=== PATIENT | female | born 1975 | race Caucasian/White ===

== ENCOUNTER 2017-07-03 17:31 | Inpatient (IN) | payer BC ==
[2017-07-03] MEDS ORDERED: Nalbuphine 10 MG/1 ML Vial IVPUSH PRN (21:11)
[2017-07-03] MEDS ORDERED: Sodium Chloride 0.9% 2.5 ML Syringe FLUSH PRN (21:11)
[2017-07-03] MEDS ORDERED: Butorphanol 1 MG/ML SDV IVPUSH PRN (21:11)
[2017-07-03] MEDS ORDERED: Water For Irrigation,Sterile 1,000 ML Container IRR PRN (21:11)
[2017-07-03] MEDS ORDERED: Sodium Chloride 0.9% 10 ML Syringe FLUSH PRN (21:11)
[2017-07-03] MEDS ORDERED: Methylergonovine 0.2 MG/1 ML Amp IM PRN (21:11)
[2017-07-03] MEDS ORDERED: Lidocaine 1% 50 ML MDV INJECT PRN (21:11)
[2017-07-03] MEDS ORDERED: Misoprostol 200 MCG Tab PO PRN (21:11)
[2017-07-03] MEDS ORDERED: Terbutaline 1 MG/ML SDV SUBCUT PRN (21:11)
[2017-07-03] MEDS ORDERED: Carboprost Tromethamine 250 MCG/1 ML Amp IM PRN (21:11)
[2017-07-03] MEDS ORDERED: Oxytocin/0.9 % Sodium Chloride 30 UNIT/500 ML BAG IV SCH ×2 (21:15)
[2017-07-03] MEDS: Lactated Ringers 1,000 ML IV SCH (23:37)
[2017-07-04] MEDS ORDERED: fentaNYL 100 MCG/2 ML SDV ONE (00:04)
[2017-07-04] MEDS ORDERED: Ropivacaine 0.2% 2 MG/ML 20 ML SDV ONE (00:05)
[2017-07-04] MEDS ORDERED: Ropivacaine 100 ML ONE (00:05)
[2017-07-04] MEDS: Lactated Ringers 1,000 ML IV SCH ×2 (00:28→07:19)
--- NOTE | 2017-07-04 00:45 | PCM.PREANE ---
Preanesthetic Assessment - Procedure Proposed Procedure: labor epidural - Anesthesia/Transfusion/Family Hx Anesthesia History: Prior Anesthesia Without Reaction Family History of Anesthesia Reaction: No Transfusion History: No Prior Transfusion(s) - Review of Systems General: No Symptoms Pulmonary: No Symptoms Cardiovascular: No Symptoms Gastrointestinal: No Symptoms Neurological: Other (lower back pain) Other: Reports: None - Physical Assessment NPO Status Date: 07/04/17 NPO Status Time: 00:44 (clear liquids) Height: 1.7 m Weight: 94.801 kg ASA Class: 2 Mental Status: Alert & Oriented x3 Airway Class: Mallampati = 1 Dentition: Reports: Normal Dentition Thyro-Mental Finger Breadths: 3 Mouth Opening Finger Breadths: 3 ROM/Head Extension: Full Lungs: Clear to Auscultation, Normal Respiratory Effort Cardiovascular: Regular Rate, Regular Rhythm - Lab Values: Laboratory Last Values WBC 10.05 K/uL (4.0-11.0) 07/03/17 21:30 RBC 3.92 M/uL (4.30-5.90) L 07/03/17 21:30 Hgb 12.0 g/dL (12.0-16.0) 07/03/17 21:30 Hct 34.5 % (36.0-46.0) L 07/03/17 21:30 MCV 88.0 fL (80.0-98.0) 07/03/17 21:30 MCH 30.6 pg (27.0-32.0) 07/03/17 21:30 MCHC 34.8 g/dL (31.0-37.0) 07/03/17 21:30 RDW Std Deviation 40.3 fl (28.0-62.0) 07/03/17 21:30 RDW Coeff of Hector 13 % (11.0-15.0) 07/03/17 21:30 Plt Count 194 K/uL (150-400) 07/03/17 21:30 MPV 9.20 fL (7.40-12.00) 07/03/17 21:30 Nucleated RBC % 0.0 /100WBC 07/03/17 21:30 Nucleated RBCs # 0 K/uL 07/03/17 21:30 Membrane Rupture POSITIVE 07/03/17 21:40 - Allergies Allergies/Adverse Reactions: Allergies Allergy/AdvReac Type Severity Reaction Status Date / Time No Known Allergies Allergy Verified 11/20/15 12:06 - Blood Blood Available: Yes Product(s) Available: PRBC - Acknowledgements Anesthesia Type Planned: Epidural Pt an Appropriate Candidate for the Planned Anesthesia: Yes Alternatives and Risks of Anesthesia Discussed w Pt/Guardian: Yes Pt/Guardian Understands and Agrees with Anesthesia Plan: Yes PreAnesthesia Questionnaire Gastrointestinal History: Reports: Hemorrhoids Genitourinary History: Reports: Other (See Below) 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: Musculoskeletal History: Reports: Fracture, Other (See Below) Other Musculoskeletal History: nose and right arm fracture Neurological History: Reports: Migraines Psychiatric History: Reports: Depression - Past Surgical History HEENT Surgical History: Reports: Oral Surgery, Tonsillectomy - SUBSTANCE USE Smoking Status *Q: Unknown Ever Smoked Recreational Drug Use History: No - HOME MEDS Home Medications: Home Meds Loratadine/Pseudoephedrine [Claritin-D 24 Hour Tablet] 1 tab PO DAILY 06/17/14 [ History] PNV95/Ferrous Fumarate/FA [ Tablet] 1 tab PO DAILY 06/17/14 [History] - CURRENT (IN HOUSE) MEDS Current Meds: Current Medications Butorphanol Tartrate (Stadol) 1 mg IVPUSH ASDIRECTED PRN PRN Reason: Pain Carboprost Tromethamine (Hemabate Ds) 250 mcg IM ASDIRECTED PRN PRN Reason: Post Hemorrhage Oxytocin/Sodium Chloride (Oxytocin 30 Unit/500 Ml-Ns) 30 unit in 500 mls @ 2 mls/hr IV TITRATE ONEIL; 2 MUNITS/MIN PRN Reason: Protocol Lactated Ringer's (Ringers, Lactated) 1,000 mls @ 150 mls/hr IV ASDIRECTED ONEIL Last Admin: 07/04/17 00:28 Dose: 150 mls/hr Oxytocin/Sodium Chloride (Oxytocin 30 Unit/500 Ml-Ns) 30 unit in 500 mls @ 999 mls/hr IV TITRATE ONEIL Lidocaine HCl (Xylocaine 1%) 50 ml INJECT .ONCE PRN PRN Reason: Laceration repair Methylergonovine Maleate (Methergine) 0.2 mg IM ASDIRECTED PRN PRN Reason: Post Hemorrhage Misoprostol (Cytotec) 200 mcg PO .ONCE PRN PRN Reason: Post Hemorrhage Nalbuphine HCl (Nubain) 10 mg IVPUSH ASDIRECTED PRN PRN Reason: Pain (severe 7-10) Sodium Chloride (Saline Flush) 10 ml FLUSH ASDIRECTED PRN PRN Reason: Keep Vein Open Sodium Chloride (Saline Flush) 2.5 ml FLUSH ASDIRECTED PRN PRN Reason: Keep Vein Open Sterile Water (Sterile Water For Irrigation) 1,000 ml IRR ASDIRECTED PRN PRN Reason: delivery Terbutaline Sulfate (Brethine) 0.25 mg SUBCUT ASDIRECTED PRN PRN Reason: Tacysystole Discontinued Medications Fentanyl (Sublimaze) Confirm Administered Dose 300 mcg .ROUTE .STK-MED ONE Stop: 07/04/17 00:05 Ropivacaine (Naropin 0.2%) Confirm Administered Dose 100 mls @ as directed .ROUTE .STK-MED ONE Stop: 07/04/17 00:06 Ropivacaine (Naropin 0.2%) Confirm Administered Dose 20 ml .ROUTE .STK-MED ONE Stop: 07/04/17 00:06
--- NOTE | 2017-07-04 00:53 | PCM.PRNOTE ---
- Free Text/Narrative Note: called to see pt for labor pain and epidural placement. pt sitting up, discussed procedure including risks of nerve pain, nerve damage, bleeding, infection and unsuccessful epidural. pt wishes to proceed. sitting up, sterile betadine prep x 3. sterile drape applied. 1% lidocaine SQ at L4. #17 g touhy SONAL with saline advanced approximately 7 cm, catheter easily placed to 12 cm at skin. No heme, no parasthesia noted. test dose 1.5% lidocaine with epi 1:200, 000. negative reaction. bolus dose of 7 ml 0.2% ropivicaine with fentanyl 100 mcg given in divided doses over 10 minutes. Pain now 1/10. PCEA programmed and running with ropivicaine 0.2% with fentanyl 2 mcg/ml at 8 ml/hr. PCEA bolus at 8 ml every 10 minutes with hourly lockout of 36 ml. educated on use of PCEA handle. No complications noted
[2017-07-04] MEDS ORDERED: Bisacodyl 10 MG Supp RECTAL PRN (09:34)
[2017-07-04] MEDS ORDERED: Docusate Sodium 100 MG Cap PO PRN (09:34)
[2017-07-04] MEDS ORDERED: Ibuprofen 400 MG Tab PO PRN (09:34)
[2017-07-04] MEDS ORDERED: Lanolin 100% Cream 7 GM Tube TOP PRN (09:34)
[2017-07-04] MEDS ORDERED: oxyCODONE 5 MG Tab PO PRN (09:34)
[2017-07-04] MEDS ORDERED: Witch Hazel Medicated Pads 40/Jar TOP PRN (09:34)
[2017-07-04] MEDS ORDERED: Benzocaine/Menthol 20%-0.5% Spray 78 GM Cannister TOP PRN (09:34)
[2017-07-04] MEDS ORDERED: Acetaminophen 500 MG Tab PO PRN (09:34)
--- NOTE | 2017-07-04 09:48 | PCM48HPAN ---
Post Anesthesia Note - EVALUATION WITHIN 48HRS OF ANESTHETIC Vital Signs in Normal Range: Yes Patient Participated in Evaluation: Yes Respiratory Function Stable: Yes Airway Patent: Yes Cardiovascular Function Stable: Yes Hydration Status Stable: Yes Pain Control Satisfactory: Yes Nausea and Vomiting Control Satisfactory: Yes Mental Status Recovered: Yes - COMMENTS/OBSERVATIONS Free Text/Narrative:: at this time Left leg numbness has not fully resolved
[2017-07-04] MEDS: Ibuprofen 800 MG Tab PO PRN ×3 (10:55→22:59)
--- NOTE | 2017-07-04 18:17 | OR ---
SURGEON: Liliana Ngo M.D. DATE OF PROCEDURE: 07/03/2017 PREOPERATIVE DIAGNOSIS: 39 week intrauterine , active spontaneous labor. POSTOPERATIVE DIAGNOSIS: 39 week intrauterine , active spontaneous labor. PROCEDURE: Pitocin augmentation of labor, term spontaneous vaginal delivery. ANESTHESIA: Epidural. ESTIMATED BLOOD LOSS: Less than 300 mL. FINDINGS: Live born male, score 9 and 10, weighing 4130 g. Placenta delivered spontaneously. Schultze intact with 3 vessels. Second-degree perineal laceration repaired. COMPLICATIONS: None known. DISPOSITION: Stable. Mother and baby are stable in LDRP in good condition. BRIEF HISTORY: This is a 42-year-old female. She is G11, P10. She presented to clinic on 07/02/2017. She was 3-4 cm dilated, 70% effaced. She returned to labor and delivery later on in the evening with spontaneous rupture of membranes. Clear fluid. Category 1 heart tones. She received an epidural for pain control at approximately 5:30 a.m. She had not progressed beyond 7 to 8 cm and therefore Pitocin was initiated and she progressed to complete. DESCRIPTION OF PROCEDURE: With the patient in the dorsal lithotomy position, under adequate epidural analgesia, the patient pushed over a single contraction to a 5+ station, at which time the head was delivered spontaneously and atraumatically over the perineum with support with subsequent delivery of the 's shoulders and body without any difficulty. The infant was bulb suctioned by nose and mouth. The cord was clamped x2 and cut and the infant was handed to the mother in the presence of the nurse attending delivery. The infant was a live-born male, score 9 and 10, weighing 4130 g. Cord blood was collected for cord ABGs as well as routine cord blood sampling. Pitocin was initiated after delivery of the to assist with delivery of the placenta which was delivered spontaneously. Schultze intact with 3 vessels. Upon inspection the pelvis and perineum, there were no periurethral, vaginal sidewall, cervical, or rectal lacerations. There was a second-degree perineal laceration. It was repaired with a running lock suture of 2-0 Caprosyn for the vaginal mucosa, deep running suture same for the skin and a deep running suture of the same for the perineal tissue and a running subcuticular suture for the skin. Final sponge, needle, and instrument counts were reported as correct. There were no known complications. Mother and baby remained in LDRP in good condition. CHEPE CANTOR /[id number]
[2017-07-04] MEDS: Acetaminophen 500 MG Tab PO PRN (20:12)
[2017-07-05] MEDS: Acetaminophen 500 MG Tab PO PRN ×2 (01:09→09:32)
[2017-07-05] MEDS: Ibuprofen 800 MG Tab PO PRN ×2 (05:13→12:25)
[2017-07-05 06:10] VITALS: BP 123/75
--- NOTE | 2017-07-05 08:01 | PCM.PNPP ---
- General Info Date of Service: 07/05/17 Functional Status: Reports: Pain Controlled, Tolerating Diet, Ambulating, Urinating - Review of Systems General: Denies: Fever, Weakness, Fatigue Pulmonary: Denies: Shortness of Breath, Pleuritic Chest Pain, Cough Cardiovascular: Denies: Chest Pain, Palpitations, Dyspnea on Exertion Gastrointestinal: Denies: Abdominal Pain Genitourinary: Denies: Dysuria - General Info Date of Service: 07/05/17 - Patient Data Vital Signs - Most Recent: Last Vital Signs Temp 36.7 C 07/05/17 06:00 Pulse 74 07/05/17 06:00 Resp 18 07/05/17 06:00 BP 123/75 07/05/17 06:00 Pulse Ox 98 07/05/17 06:00 Weight - Most Recent: 94.801 kg I&O - Last 24 Hours: Intake & Output 07/04/17 07/05/17 07/05/17 22:59 06:59 14:59 Intake Total 2 Balance 2 Lab Results - Last 24 Hours: Laboratory Results - last 24 hr 07/03/17 07/04/17 07/05/17 Range/Units 21:30 09:08 05:01 Hgb 10.1 L (12.0-16.0) g/dL Hct 29.3 L (36.0-46.0) % Prewarmed Antibody Srcn POSITIVE Screen NEGATIVE (NEGATIVE) RhIG Candidate? YES Rhogam Indicated YES, BABY RH POS H Med Orders - Current: Current Medications Acetaminophen (Tylenol Extra Strength) 500 mg PO Q4H PRN PRN Reason: Pain Acetaminophen (Tylenol Extra Strength) 1,000 mg PO Q4H PRN PRN Reason: Pain Last Admin: 07/05/17 01:09 Dose: 1,000 mg Benzocaine/Menthol (Dermoplast Pain Relief 20%-0.5% Epps) 78 gm TOP ASDIRECTED PRN PRN Reason: Perineal Comfort Measure Last Admin: 07/04/17 10:55 Dose: 1 applic Bisacodyl (Dulcolax) 10 mg RECTAL .ONCE PRN PRN Reason: Constipation Docusate Sodium (Colace) 100 mg PO BID PRN PRN Reason: Constipation Last Admin: 07/04/17 23:32 Dose: 100 mg Emollient Ointment (Lansinoh Hpa) 0 gm TOP ASDIRECTED PRN PRN Reason: Sore Nipples Last Admin: 07/04/17 10:54 Dose: 1 applic Ibuprofen (Motrin) 400 mg PO Q4H PRN PRN Reason: Pain Ibuprofen (Motrin) 800 mg PO Q6H PRN PRN Reason: Pain Last Admin: 07/05/17 05:13 Dose: 800 mg Oxycodone HCl (Oxycodone) 5 mg PO Q2H PRN PRN Reason: Pain Witch Ramona (Tucks) 1 pad TOP ASDIRECTED PRN PRN Reason: comfort care Last Admin: 07/04/17 10:54 Dose: 1 applic Discontinued Medications Butorphanol Tartrate (Stadol) 1 mg IVPUSH ASDIRECTED PRN PRN Reason: Pain Carboprost Tromethamine (Hemabate Ds) 250 mcg IM ASDIRECTED PRN PRN Reason: Post Hemorrhage Fentanyl (Sublimaze) Confirm Administered Dose 300 mcg .ROUTE .STK-MED ONE Stop: 07/04/17 00:05 Oxytocin/Sodium Chloride (Oxytocin 30 Unit/500 Ml-Ns) 30 unit in 500 mls @ 2 mls/hr IV TITRATE ONEIL; 2 MUNITS/MIN PRN Reason: Protocol Last Titration: 07/04/17 06:45 Dose: 4 munits/min, 4 mls/hr Lactated Ringer's (Ringers, Lactated) 1,000 mls @ 150 mls/hr IV ASDIRECTED ONEIL Last Admin: 07/04/17 07:19 Dose: 150 mls/hr Oxytocin/Sodium Chloride (Oxytocin 30 Unit/500 Ml-Ns) 30 unit in 500 mls @ 999 mls/hr IV TITRATE ONEIL Ropivacaine (Naropin 0.2%) Confirm Administered Dose 100 mls @ as directed .ROUTE .STK-MED ONE Stop: 07/04/17 00:06 Lidocaine HCl (Xylocaine 1%) 50 ml INJECT .ONCE PRN PRN Reason: Laceration repair Methylergonovine Maleate (Methergine) 0.2 mg IM ASDIRECTED PRN PRN Reason: Post Hemorrhage Misoprostol (Cytotec) 200 mcg PO .ONCE PRN PRN Reason: Post Hemorrhage Nalbuphine HCl (Nubain) 10 mg IVPUSH ASDIRECTED PRN PRN Reason: Pain (severe 7-10) Ropivacaine (Naropin 0.2%) Confirm Administered Dose 20 ml .ROUTE .[employer] ONE Stop: 07/04/17 00:06 Sodium Chloride (Saline Flush) 10 ml FLUSH ASDIRECTED PRN PRN Reason: Keep Vein Open Sodium Chloride (Saline Flush) 2.5 ml FLUSH ASDIRECTED PRN PRN Reason: Keep Vein Open Sterile Water (Sterile Water For Irrigation) 1,000 ml IRR ASDIRECTED PRN PRN Reason: delivery Last Admin: 07/04/17 10:57 Dose: 1,000 ml Terbutaline Sulfate (Brethine) 0.25 mg SUBCUT ASDIRECTED PRN PRN Reason: Tacysystole - Infant Interaction Infant Disposition, : to Nursery Infant Feeding: Breastfed Infant; Nursed Well Support Person: - Recovery Exam Fundal Tone: Firm Fundal Level: At Umbilicus Fundal Placement: Midline Lochia Amount: Scant Lochia Color: Rubra/Red Perineum Description: Other (see below) Other Perinuem Description: 2nd degree laceration,repaired Episiotomy/Laceration: Approximated Bladder Status: Voiding Urinary Elimination: Voided - Exam General: Alert, Oriented Neck: Supple Lungs: Clear to Auscultation, Normal Respiratory Effort Cardiovascular: Regular Rate, Regular Rhythm GI/Abdominal Exam: Normal Bowel Sounds, No Distention Extremities: Normal Inspection, Pedal Edema (trace) Skin: Warm, Dry, Intact - Problem List & Annotations (1) Vaginal delivery SNOMED Code(s): 480751466 Code(s): O80 - ENCOUNTER FOR FULL-TERM UNCOMPLICATED DELIVERY Status: Acute Current Visit: Yes - Problem List Review Problem List Initiated/Reviewed/Updated: Yes - Assessment Assessment:: PPD#1 s/p . Minimal pain and lochia. Breast feeding well. Discharge home today. - Plan Plan:: Discharge instructions reviewed. Nothing in the vagina for 6 weeks. Continue PNV while breast feeding. Can use OTC ibuprofen/tylenol as needed for pain. Instructed patient to call if she develops fever greater than 101 or bleeding through a large pad an hour. F/U with [facility] in 6 weeks
== END 2017-07-05 14:00 | disposition home or self-care (01) | DRG 560 ==
LOC: MW.OBCHECK 17:31 → MW.OB 17:35 → MW.OBCHECK 21:10 → MW.OB 21:11 → OBSVTOIN 07-04 07:42
PROVIDERS: ADMIT Obstetrics & Gynecology; ATTEND Obstetrics & Gynecology
PROC: 10E0XZZ Delivery of Products of Conception, External Approach (ICD-10-PCS; principal; 2017-07-04)
PROC: 0KQM0ZZ Repair Perineum Muscle, Open Approach (ICD-10-PCS; 2017-07-04)
DX: O70.1 Second degree perineal laceration during delivery (principal); O09.523 Supervision of elderly multigravida, third trimester; O09.43 Supervision of pregnancy with grand multiparity, third trimester; Z3A.39 39 weeks gestation of pregnancy; Z37.0 Single live birth
CPT/HCPCS: 36415; 51702; 59025; 59409; 84112; 85014; 85018; 85027; 85460; 86156; 86850; 86870; 86900; 86901; 86902; 86922; A9270-GY; J2590; J2790; J7120

== ENCOUNTER 2017-09-07 11:54 | Emergency (ER) | payer BC ==
--- NOTE | 2017-09-07 12:13 | EDM.PDOC ---
ED HPI GENERAL MEDICAL PROBLEM - General Chief Complaint: ENT Problem Stated Complaint: SORE THROAT Time Seen by Provider: 09/07/17 12:01 Source of Information: Reports: Patient History Limitations: Reports: No Limitations - History of Present Illness INITIAL COMMENTS - FREE TEXT/NARRATIVE: HISTORY AND PHYSICAL: History of present illness: Patient is a 42-year-old female who presents to the emergency room today with complaints of sore throat 2 days. She states that she has had subjective fever and chills and has been using Tylenol which seems to help the fever but has not alleviated any throat pain. She is currently 2 months and is breast- feeding. Denies any breast tenderness, erythema or abnormal discharge. She denies any chest pain, shortness of breath, cough. No abdominal pain, nausea, vomiting or diarrhea/constipation. Review of systems: As per history of present illness and below otherwise all systems reviewed and negative. Past medical history: As per history of present illness and as reviewed below otherwise noncontributory. Surgical history: As per history of present illness and as reviewed below otherwise noncontributory. Social history: No reported history of drug or alcohol abuse. Family history: As per history of present illness and as reviewed below otherwise noncontributory. Physical exam: Gen.: Well-developed and well-nourished 42-year-old female. Alert and oriented. Nontoxic appearing and in no acute distress HEENT: Atraumatic, normocephalic, pupils reactive, negative for conjunctival pallor or scleral icterus, mucous membranes moist, mild erythema to the posterior oropharynx without exudate, neck supple, nontender, trachea midline. Lungs: Clear to auscultation, breath sounds equal bilaterally, chest nontender. Heart: S1S2, regular rate and rhythm Abdomen: Soft, nondistended, nontender. Negative for masses. Negative for costovertebral tenderness. Pelvis: Stable nontender. Genitourinary: Deferred. Rectal: Deferred. Extremities: Atraumatic, negative for cords or calf pain. Neurovascular unremarkable. Neuro: Awake, alert, oriented. Cranial nerves II through XII unremarkable. Cerebellum unremarkable. Motor and sensory unremarkable throughout. Exam nonfocal. Diagnostics: Strep Therapeutics: [] Impression: Strep Throat Plan: 1. Please take the antibiotic as prescribed. Continue to use Tylenol for pain and fever management. 2. Warm salt water gargles 2-3 times daily. Please get a new toothbrush after completing your antibiotic. 3. Follow-up with your primary caregiver in the next 1-2 days. Return to the ED as needed and as discussed. Definitive disposition and diagnosis as appropriate pending reevaluation and review of above. Duration: Day(s): Location: Reports: Neck throat Pain Score (Numeric/FACES): 4 - Related Data Allergies Allergy/AdvReac Type Severity Reaction Status Date / Time No Known Allergies Allergy Verified 09/07/17 12:22 Home Meds: Home Meds Cranberry 09/07/17 [History] Magnesium 09/07/17 [History] #103/Iron Fumarate/Fa [ ] 09/07/17 [History] Past Medical History Gastrointestinal History: Reports: Hemorrhoids Genitourinary History: Reports: Other (See Below) Other Genitourinary History: uti [employer] MAN History: Reports: Musculoskeletal History: Reports: Fracture, Other (See Below) Other Musculoskeletal History: nose and right arm fracture Neurological History: Reports: Migraines Psychiatric History: Reports: Depression - Past Surgical History HEENT Surgical History: Reports: Oral Surgery, Tonsillectomy Social & Family History - Family History Cardiac: Reports: Hypertension Psychiatric: Reports: Depression - Tobacco Use Smoking Status *Q: Former Smoker Used Tobacco, but Quit: No Second Hand Smoke Exposure: No - Caffeine Use Caffeine Use: Reports: None - Recreational Drug Use Recreational Drug Use: No ED ROS ENT - Review of Systems Review Of Systems: ROS reveals no pertinent complaints other than HPI. (See dictation) ED EXAM, ENT - Physical Exam Exam: See Below Course - Vital Signs Last Recorded V/S: Last Vital Signs Temp 98.2 F 09/07/17 12:00 Pulse 72 09/07/17 12:00 Resp 18 09/07/17 12:00 BP 126/76 09/07/17 12:00 Pulse Ox 98 09/07/17 12:00 Departure - Departure Time of Disposition: 12:13 Disposition: Home, Self-Care 01 Condition: Good Clinical Impression: Strep throat - Discharge Information Instructions: Strep Throat, [id number] Referrals: PCP,None [Primary Care Provider] - Forms: ED Department Discharge Additional Instructions: The following information is given to patients seen in the emergency department who are being discharged to home. This information is to outline your options for follow-up care. We provide all patients seen in our emergency department with a follow-up referral. The need for follow-up, as well as the timing and circumstances, are variable depending upon the specifics of your emergency department visit. If you don't have a primary care physician on staff, we will provide you with a referral. We always advise you to contact your personal physician following an emergency department visit to inform them of the circumstance of the visit and for follow-up with them and/or the need for any referrals to a consulting specialist. The emergency department will also refer you to a specialist when appropriate. This referral assures that you have the opportunity for follow-up care with a specialist. All of these measure are taken in an effort to provide you with optimal care, which includes your follow-up. Under all circumstances we always encourage you to contact your private physician who remains a resource for coordinating your care. When calling for follow-up care, please make the office aware that this follow-up is from your recent emergency room visit. If for any reason you are refused follow-up, please contact the [facility] at and asked to speak to the emergency department charge nurse. [facility] [address] [place] [id number] 1. Please take the antibiotic as prescribed. Continue to use Tylenol for pain and fever management. 2. Warm salt water gargles 2-3 times daily. Please get a new toothbrush after completing your antibiotic. 3. Follow-up with your primary caregiver in the next 1-2 days. Return to the ED as needed and as discussed.
[2017-09-07 12:27] VITALS: BP 126/76
== END 2017-09-07 12:55 | disposition home or self-care (01) ==
LOC: MW.ED 11:54
DX: J02.0 Streptococcal pharyngitis (principal); Z87.891 Personal history of nicotine dependence
CPT/HCPCS: 87880; 99283

== ENCOUNTER 2019-03-10 16:39 | Emergency (ER) | payer BC ==
[2019-03-10 16:47] VITALS: BP 133/70; PULSE 76
--- NOTE | 2019-03-10 17:03 | EDM.PDOC ---
ED HPI GENERAL MEDICAL PROBLEM - General Chief Complaint: Genitourinary Problem Stated Complaint: uti Time Seen by Provider: 03/10/19 16:39 Source of Information: Reports: Patient History Limitations: Reports: No Limitations - History of Present Illness INITIAL COMMENTS - FREE TEXT/NARRATIVE: HISTORY AND PHYSICAL: History of present illness: Patient is a 44-year-old female who presents to the emergency room with complaints of urinary frequency and discomfort 4 days. Patient does have a history of urinary tract infections and believes that she has UTI at this time. Patient denies any fever, chills, headache, change in vision, syncope or near syncope. Denies any chest pain, back pain, shortness of breath or cough. Denies any abdominal pain, nausea, vomiting, diarrhea, constipation. Has not noted any blood in urine or stool. Patient has been eating and drinking appropriately. Review of systems: As per history of present illness and below otherwise all systems reviewed and negative. Past medical history: As per history of present illness and as reviewed below otherwise noncontributory. Surgical history: As per history of present illness and as reviewed below otherwise noncontributory. Social history: See social history for further information Family history: As per history of present illness and as reviewed below otherwise noncontributory. Physical exam: General: Well-developed and well-nourished 44 she'll female. Alert and oriented. Nontoxic appearing and in no acute distress. HEENT: Atraumatic, normocephalic, pupils equal and reactive bilaterally, negative for conjunctival pallor or scleral icterus, mucous membranes moist, trachea midline. No drooling or trismus noted. No meningeal signs. No hot potato voice noted. Lungs: Clear to auscultation, breath sounds equal bilaterally, chest nontender. Heart: S1S2, regular rate and rhythm without overt murmur Abdomen: Soft, nondistended, nontender. Negative for masses or hepatosplenomegaly. Negative for costovertebral tenderness. Pelvis: Stable nontender. Skin: Intact, warm, dry. No lesions or rashes noted. Extremities: Atraumatic, moves all extremities per self without difficulty or deficits, negative for cords or calf pain. Neurovascular unremarkable. Neuro: Awake, alert, oriented. Cranial nerves II through XII unremarkable. Cerebellum unremarkable. Motor and sensory unremarkable throughout. Exam nonfocal. Notes: Patient states she was on amoxicillin last month for urinary tract infection. She does request to use Keflex for antibiotic if needed. Supportive care measures were reviewed and discussed. Voices understanding and is agreeable to plan of care. Denies any further questions or concerns at this time. Diagnostics: UA Therapeutics: None Prescription: Keflex Impression: UTI Plan: 1. Increase your oral fluids and take your medications as we discussed. 2. Follow-up with your primary care provider as we discussed. 3. Return to the ED as needed and as discussed. Definitive disposition and diagnosis as appropriate pending reevaluation and review of above. urinary Pain Score (Numeric/FACES): 5 - Related Data Allergies Allergy/AdvReac Type Severity Reaction Status Date / Time nitrofurantoin Allergy Nausea and Verified 03/10/19 16:47 [From Macrobid] Vomiting Home Meds: Home Meds Cranberry 1 tab PO ASDIRECTED 09/07/17 [History] Magnesium 500 mg PO DAILY 09/07/17 [History] #103/Iron Fumarate/Fa [ ] 1 tab PO DAILY 09/07/17 [ History] Loratadine [Claritin] 10 mg PO DAILY 03/10/19 [History] Past Medical History HEENT History: Reports: None Cardiovascular History: Reports: None Respiratory History: Reports: None Gastrointestinal History: Reports: Hemorrhoids Genitourinary History: Reports: Other (See Below) Other Genitourinary History: uti 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: Musculoskeletal History: Reports: Fracture, Other (See Below) Other Musculoskeletal History: nose and right arm fracture Neurological History: Reports: Migraines Psychiatric History: Reports: Depression Endocrine/Metabolic History: Reports: None Hematologic History: Reports: None Immunologic History: Reports: None Oncologic (Cancer) History: Reports: None Dermatologic History: Reports: None - Past Surgical History Head Surgeries/Procedures: Reports: None HEENT Surgical History: Reports: Oral Surgery, Tonsillectomy Cardiovascular Surgical History: Reports: None Respiratory Surgical History: Reports: None GI Surgical History: Reports: None Female Surgical History: Reports: None Endocrine Surgical History: Reports: None Neurological Surgical History: Reports: None Musculoskeletal Surgical History: Reports: None Oncologic Surgical History: Reports: None Dermatological Surgical History: Reports: None Social & Family History - Family History Family Medical History: Noncontributory Cardiac: Reports: Hypertension Psychiatric: Reports: Depression - Tobacco Use Smoking Status *Q: Never Smoker Second Hand Smoke Exposure: No - Caffeine Use Caffeine Use: Reports: None - Recreational Drug Use Recreational Drug Use: No ED ROS GENERAL - Review of Systems Review Of Systems: ROS reveals no pertinent complaints other than HPI. ED EXAM, RENAL/ - Physical Exam Exam: See Below (See dictation) Course - Vital Signs Last Recorded V/S: Last Vital Signs Temp 96.1 F 03/10/19 16:45 Pulse 76 03/10/19 16:45 Resp 18 03/10/19 16:45 BP 133/70 03/10/19 16:45 Pulse Ox 99 03/10/19 16:45 - Orders/Labs/Meds Labs: Laboratory Tests 03/10/19 Range/Units 17:16 Urine Color YELLOW Urine Appearance CLEAR Urine pH 5.5 (5.0-8.0) Ur Specific [place] 1.015 (1.001-1.035) Urine Protein NEGATIVE (NEGATIVE) mg/dL Urine Glucose (UA) NEGATIVE (NEGATIVE) mg/dL Urine Ketones NEGATIVE (NEGATIVE) mg/dL Urine Occult Blood TRACE-INTACT H (NEGATIVE) Urine Nitrite NEGATIVE (NEGATIVE) Urine Bilirubin NEGATIVE (NEGATIVE) Urine Urobilinogen 0.2 (<2.0) EU/dL Ur Leukocyte Esterase NEGATIVE (NEGATIVE) Urine RBC 0-2 (0-2/HPF) Urine WBC 3-6 (0-5/HPF) Ur Epithelial Cells FEW (NONE-FEW) Urine Bacteria RARE (NEGATIVE) Urine Mucus LIGHT (NONE-MOD) Departure - Departure Time of Disposition: 17:37 Disposition: Home, Self-Care 01 Clinical Impression: UTI, Urinary tract infectious disease - Discharge Information Instructions: Urinary Tract Infection, Adult, [id number] Referrals: PCP,Unknown [Primary Care Provider] - Forms: ED Department Discharge Additional Instructions: The following information is given to patients seen in the emergency department who are being discharged to home. This information is to outline your options for follow-up care. We provide all patients seen in our emergency department with a follow-up referral. The need for follow-up, as well as the timing and circumstances, are variable depending upon the specifics of your emergency department visit. If you don't have a primary care physician on staff, we will provide you with a referral. We always advise you to contact your personal physician following an emergency department visit to inform them of the circumstance of the visit and for follow-up with them and/or the need for any referrals to a consulting specialist. The emergency department will also refer you to a specialist when appropriate. This referral assures that you have the opportunity for follow-up care with a specialist. All of these measure are taken in an effort to provide you with optimal care, which includes your follow-up. Under all circumstances we always encourage you to contact your private physician who remains a resource for coordinating your care. When calling for follow-up care, please make the office aware that this follow-up is from your recent emergency room visit. If for any reason you are refused follow-up, please contact the [facility] Emergency Department at and asked to speak to the emergency department charge nurse. [facility] Primary Care [address] [place] [id number] [place] [phone] 1. Increase your oral fluids and take your medications as we discussed. 2. Follow-up with your primary care provider as we discussed. 3. Return to the ED as needed and as discussed.
== END 2019-03-10 17:58 | disposition home or self-care (01) ==
LOC: MW.ED 16:39
DX: N39.0 Urinary tract infection, site not specified (principal); Z88.8 Allergy status to other drugs, medicaments and biological substances; Z79.899 Other long term (current) drug therapy; Z98.890 Other specified postprocedural states
CPT/HCPCS: 81001; 99283